=== PATIENT | female | born 1975 | race African-American/Black ===

== ENCOUNTER 2018-05-06 09:18 | Emergency (ER) | payer OTHER ==
[~2018-05-06] VITALS: Ht 152.4 cm; Wt 68.0 kg
[~2018-05-06 09:18] MED LIST: HTN MED; IRON325; PRENATAL COMPL1 EACH PO; ULTRAM 50MG TAB50 MG PO
[2018-05-06 09:25] VITALS: BP 142/85
[2018-05-06] MEDS ORDERED: LOPRESSOR50 PO (09:28)
[2018-05-06] MEDS ORDERED: HYDROCHLOROTHIA25 M2 PO (09:29)
[2018-05-06] MEDS ORDERED: CYCLOBENZAPRINE5 MG PO (09:41)
[2018-05-06] MEDS ORDERED: HYDROCODONE-AP1 EAC6 PO (09:41)
== END 2018-05-06 09:43 | disposition home or self-care (01) ==
LOC: ER 09:18
DX: S39.012A Strain of muscle, fascia and tendon of lower back, initial encounter (principal); I10 Essential (primary) hypertension; X58.XXXA Exposure to other specified factors, initial encounter; Y93.89 Activity, other specified; Y92.89 Other specified places as the place of occurrence of the external cause; Y99.8 Other external cause status

== ENCOUNTER 2019-09-17 12:39 | Emergency (ER) | payer OTHER ==
[~2019-09-17] VITALS: Ht 152.4 cm; Wt 72.6 kg
[~2019-09-17 12:39] MED LIST changes: +CYCLOBENZAPRINE5 MG PO; +HYDROCHLOROTHIA25 M2 PO; +HYDROCODONE-AP1 EAC6 PO; +LOPRESSOR50 PO
[2019-09-17] MEDS ORDERED: MAXALT10 MG PO (13:07)
[2019-09-17] MEDS ORDERED: NORCO 5-325 TA1 EAC1 PO (14:11)
[2019-09-17] MEDS ORDERED: VOLTAREN GEL 1100 G2 TOP (14:11)
[2019-09-17 14:17] VITALS: BP 127/89
== END 2019-09-17 14:27 | disposition home or self-care (01) ==
LOC: ER 12:39
DX: S83.8X1A Sprain of other specified parts of right knee, initial encounter (principal); I10 Essential (primary) hypertension; M25.572 Pain in left ankle and joints of left foot; W10.9XXA Fall (on) (from) unspecified stairs and steps, initial encounter; Y92.89 Other specified places as the place of occurrence of the external cause; Y93.89 Activity, other specified; Y99.8 Other external cause status

== ENCOUNTER 2020-08-02 10:41 | Emergency (ER) | payer OTHER ==
[~2020-08-02] VITALS: Ht 152.4 cm; Wt 73.9 kg
[~2020-08-02 10:41] MED LIST changes: +MAXALT10 MG PO; +NORCO 5-325 TA1 EAC1 PO; +VOLTAREN GEL 1100 G2 TOP
[2020-08-02 10:43] VITALS: BP 139/94
[2020-08-02] MEDS ORDERED: BENADRYL25 MG PO (11:16)
[2020-08-02] MEDS ORDERED: HEARTBURN PREVE20 MG PO (11:16)
[2020-08-02] MEDS ORDERED: PREDNISONE 20 M20 MG PO (11:16)
== END 2020-08-02 11:31 | disposition home or self-care (01) ==
LOC: ER 10:41
DX: L23.9 Allergic contact dermatitis, unspecified cause (principal); I10 Essential (primary) hypertension; Z98.51 Tubal ligation status; Z79.899 Other long term (current) drug therapy

== ENCOUNTER 2021-06-08 15:26 | Emergency (ER) | payer OTHER ==
[~2021-06-08] VITALS: Ht 152.4 cm; Wt 77.1 kg
[~2021-06-08 15:26] MED LIST changes: +BENADRYL25 MG PO; +HEARTBURN PREVE20 MG PO; +PREDNISONE 20 M20 MG PO
[2021-06-08 15:45] VITALS: BP 136/98
== END 2021-06-08 16:41 | disposition home or self-care (01) ==
LOC: ER 15:26
DX: S09.8XXA Other specified injuries of head, initial encounter (principal); M25.512 Pain in left shoulder; I10 Essential (primary) hypertension; H93.12 Tinnitus, left ear; Z98.51 Tubal ligation status; V43.52XA Car driver injured in collision with other type car in traffic accident, initial encounter; Y93.I9 Activity, other involving external motion; Y92.488 Other paved roadways as the place of occurrence of the external cause; Y99.8 Other external cause status

== ENCOUNTER 2021-08-06 20:31 | Emergency (ER) | payer OTHER ==
[~2021-08-06] VITALS: Ht 152.4 cm; Wt 72.6 kg
[2021-08-06] MEDS ORDERED: PREDNISONE 10 M10 MG PO (21:10)
[2021-08-06 21:55] VITALS: BP 149/100
== END 2021-08-06 21:56 | disposition home or self-care (01) ==
LOC: ER 20:31
DX: T78.40XA Allergy, unspecified, initial encounter (principal); I10 Essential (primary) hypertension; Z98.51 Tubal ligation status; Z79.899 Other long term (current) drug therapy; Z91.048 Other nonmedicinal substance allergy status; X58.XXXA Exposure to other specified factors, initial encounter